=== PATIENT | female | born 1985 | race Caucasian/White ===

== ENCOUNTER 2022-06-13 08:00 | Day surgery (SDC) | payer MEDICAID ==
[2022-06-13] MEDS ORDERED: Cyanocobalamin (Vitamin B12) 1,000 MCG/ML SDV IM ONE (08:30)
[2022-06-13] MEDS ORDERED: Lactated Ringers 1,000 ML IV SCH (09:15)
[2022-06-13] MEDS ORDERED: Glycopyrrolate 0.2 MG/ML 2 ML SDV IVPUSH ONE (09:30)
[2022-06-13] MEDS ORDERED: fentaNYL 50 MCG/ML SDV ONE (10:06)
[2022-06-13] MEDS ORDERED: Midazolam 1 MG/ML 2 ML SDV ONE (10:06)
[2022-06-13] MEDS ORDERED: Propofol 200 MG/20 ML SDV ONE (10:06)
[2022-06-13] MEDS ORDERED: MVI, Adult with Vitamin K 10 ML, Thiamine 200 MG, Chromium/Copper/Mang/Selen/Zn 1 ML in... IV ONE ×4 (10:15)
[2022-06-13] MEDS ORDERED: oxyCODONE 5 MG Tab PO ONE (12:15)
== END 2022-06-13 12:52 | disposition home or self-care (01) ==
LOC: JP.SDS 08:00 → MERGE 08:00 → JP.SDS 12:52
PROVIDERS: ATTEND Student in an Organized Health Care Education/Training Program
DX: K22.2 Esophageal obstruction (principal); K21.00 Gastro-esophageal reflux disease with esophagitis, without bleeding; G43.909 Migraine, unspecified, not intractable, without status migrainosus; Z98.0 Intestinal bypass and anastomosis status
CPT/HCPCS: 43202; 88305; 88313; A9270; C1751; J1642; J2250; J2704; J3010; J3411; J3490; J7120

== ENCOUNTER 2022-06-17 09:26 | Day surgery (SDC) | payer MEDICAID ==
[2022-06-17] MEDS ORDERED: Lactated Ringers 1,000 ML IV ONE (10:15)
[2022-06-17] MEDS ORDERED: Cyanocobalamin (Vitamin B12) 1,000 MCG/ML SDV IM ONE (10:15)
[2022-06-17] MEDS ORDERED: Glycopyrrolate 0.2 MG/ML 2 ML SDV IVPUSH ONE (10:30)
[2022-06-17] MEDS ORDERED: Midazolam 1 MG/ML 2 ML SDV ONE (11:11)
[2022-06-17] MEDS ORDERED: fentaNYL 100 MCG/2 ML SDV ONE (11:11)
[2022-06-17] MEDS ORDERED: Propofol 200 MG/20 ML SDV ONE (11:11)
[2022-06-17] MEDS ORDERED: MVI, Adult with Vitamin K 10 ML, Thiamine 200 MG, Zinc/Copper/Manganese/Selenium 1 ML i... IV ONE ×4 (11:15)
[2022-06-17] MEDS ORDERED: Dexamethasone 4 MG/ML SDV ONE (12:49)
== END 2022-06-17 13:52 | disposition home or self-care (01) ==
LOC: JP.SDS 09:26 → MERGE 09:26 → JP.SDS 13:52
PROVIDERS: ATTEND Surgery
DX: K91.89 Other postprocedural complications and disorders of digestive system (principal); K22.2 Esophageal obstruction; Z88.0 Allergy status to penicillin; Z88.1 Allergy status to other antibiotic agents; Z88.8 Allergy status to other drugs, medicaments and biological substances
CPT/HCPCS: 43249; C1726; C1751; J1100; J1642; J2250; J2704; J3010; J3411; J3490; J7120

== ENCOUNTER 2022-07-14 12:25 | Day surgery (SDC) | payer MEDICAID ==
[2022-07-14] MEDS ORDERED: Midazolam 1 MG/ML 2 ML SDV ONE (12:45)
[2022-07-14] MEDS ORDERED: fentaNYL 100 MCG/2 ML SDV ONE (12:45)
[2022-07-14] MEDS ORDERED: Propofol 200 MG/20 ML SDV ONE (12:45)
[2022-07-14] MEDS ORDERED: Glycopyrrolate 0.2 MG/ML 2 ML SDV IVPUSH ONE (13:00)
[2022-07-14] MEDS ORDERED: Lactated Ringers 1,000 ML IV SCH (13:00)
[2022-07-14] MEDS ORDERED: Cyanocobalamin (Vitamin B12) 1,000 MCG/ML SDV IM ONE (13:00)
[2022-07-14] MEDS ORDERED: MVI, Adult with Vitamin K 10 ML, Thiamine 200 MG, Zinc/Copper/Manganese/Selenium 1 ML i... IV ONE ×4 (14:00)
== END 2022-07-14 16:18 | disposition home or self-care (01) ==
LOC: JP.SDS 12:25
PROVIDERS: ATTEND Surgery
DX: K91.89 Other postprocedural complications and disorders of digestive system (principal); K22.2 Esophageal obstruction; E66.01 Morbid (severe) obesity due to excess calories; Z98.0 Intestinal bypass and anastomosis status; Z88.0 Allergy status to penicillin; Z88.2 Allergy status to sulfonamides; Z88.8 Allergy status to other drugs, medicaments and biological substances; Z91.041 Radiographic dye allergy status; Z88.1 Allergy status to other antibiotic agents; Z68.28 Body mass index [BMI] 28.0-28.9, adult
CPT/HCPCS: C1726; J1642; J2250; J2704; J3010; J3411; J3490; J7120

== ENCOUNTER 2022-08-14 07:31 | Day surgery (SDC) | payer MEDICAID ==
[2022-08-14] MEDS ORDERED: Lactated Ringers 1,000 ML IV SCH (08:00)
[2022-08-14] MEDS ORDERED: Cyanocobalamin (Vitamin B12) 1,000 MCG/ML SDV IM ONE (08:00)
[2022-08-14] MEDS ORDERED: Propofol 200 MG/20 ML SDV ONE (08:46)
[2022-08-14] MEDS ORDERED: fentaNYL 50 MCG/ML SDV ONE (08:47)
[2022-08-14] MEDS ORDERED: Midazolam 1 MG/ML 2 ML SDV ONE (08:47)
[2022-08-14] MEDS ORDERED: Glycopyrrolate 0.2 MG/ML 2 ML SDV IVPUSH ONE (09:00)
[2022-08-14] MEDS ORDERED: MVI, Adult with Vitamin K 10 ML, Thiamine 200 MG, Chromium/Copper/Mang/Selen/Zn 1 ML in... IV ONE ×4 (09:00)
[2022-08-14] MEDS ORDERED: Dexamethasone 4 MG/ML SDV ONE (11:44)
== END 2022-08-14 12:55 | disposition home or self-care (01) ==
LOC: JP.SDS 07:31
PROVIDERS: ATTEND Surgery
DX: K94.23 Gastrostomy malfunction (principal); E66.01 Morbid (severe) obesity due to excess calories; Z68.27 Body mass index [BMI] 27.0-27.9, adult; Z88.0 Allergy status to penicillin; Z79.899 Other long term (current) drug therapy; Z88.1 Allergy status to other antibiotic agents; Z88.2 Allergy status to sulfonamides; Z88.8 Allergy status to other drugs, medicaments and biological substances; Z88.5 Allergy status to narcotic agent
CPT/HCPCS: C1726; J1100; J1642; J2250; J2704; J3010; J3411; J3490; J7120

== ENCOUNTER 2022-10-27 09:39 | Day surgery (SDC) | payer MEDICAID ==
[2022-10-27] MEDS ORDERED: Propofol 200 MG/20 ML SDV ONE (10:09)
[2022-10-27] MEDS ORDERED: fentaNYL 50 MCG/ML SDV ONE (10:09)
[2022-10-27] MEDS ORDERED: Midazolam 1 MG/ML 2 ML SDV ONE (10:09)
[2022-10-27] MEDS ORDERED: Lactated Ringers 1,000 ML IV SCH (10:30)
[2022-10-27] MEDS ORDERED: MVI, Adult with Vitamin K 10 ML, Thiamine 200 MG, Zinc/Copper/Manganese/Selenium 1 ML i... IV ONE ×4 (11:30)
[2022-10-27] MEDS ORDERED: Glycopyrrolate 0.2 MG/ML 2 ML SDV IVPUSH ONE (11:30)
[2022-10-27] MEDS ORDERED: Dexamethasone 4 MG/ML SDV ONE (12:09)
== END 2022-10-27 13:41 | disposition home or self-care (01) ==
LOC: JP.SDS 09:39
PROVIDERS: ATTEND Surgery
DX: T18.128A Food in esophagus causing other injury, initial encounter (principal); K22.2 Esophageal obstruction; F41.9 Anxiety disorder, unspecified; K21.9 Gastro-esophageal reflux disease without esophagitis; E66.9 Obesity, unspecified; K90.9 Intestinal malabsorption, unspecified; K91.89 Other postprocedural complications and disorders of digestive system; Z91.010 Allergy to peanuts; Z91.011 Allergy to milk products; Z88.2 Allergy status to sulfonamides; Z88.5 Allergy status to narcotic agent; Z91.041 Radiographic dye allergy status; Z88.1 Allergy status to other antibiotic agents; Z88.0 Allergy status to penicillin; Z68.22 Body mass index [BMI] 22.0-22.9, adult
CPT/HCPCS: 43245; 43247; C1726; C1751; J1100; J1642; J2250; J2704; J3010; J3411; J3490; J7120